=== PATIENT | male | born 1990 | race African-American/Black ===

== ENCOUNTER 2019-09-21 09:06 | Emergency (ER) | payer OTHER ==
[~2019-09-21] VITALS: Ht 185.4 cm; Wt 105.0 kg
[2019-09-21 09:09] VITALS: BP 112/91
== END 2019-09-21 10:40 | disposition left against medical advice (07) ==
LOC: ER 09:21
DX: M25.561 Pain in right knee (principal); Z98.890 Other specified postprocedural states; W51.XXXA Accidental striking against or bumped into by another person, initial encounter; Y93.63 Activity, rugby; Y92.89 Other specified places as the place of occurrence of the external cause
CPT/HCPCS: 99282

== ENCOUNTER 2021-03-13 20:32 | Emergency (ER) | payer OTHER ==
[~2021-03-13] VITALS: Ht 185.4 cm; Wt 105.0 kg
[2021-03-14] MEDS ORDERED: LIDOCAINE 5% PATCH TOP SCH (01:15)
[2021-03-14] MEDS ORDERED: KETOROLAC 60MG/2ML VIAL IM ONE (01:15)
[2021-03-14] MEDS ORDERED: IBUP-2029 MT (01:16)
[2021-03-14] MEDS ORDERED: LIDO700A30 TP (01:16)
[2021-03-14 02:26] VITALS: BP 122/85
== END 2021-03-14 02:28 | disposition home or self-care (01) ==
LOC: ER 20:32
DX: M54.5 Low back pain (principal); R07.89 Other chest pain
CPT/HCPCS: 71045; 96372; 99283; J1885